=== PATIENT | male | born 1945 | race African-American/Black ===

== ENCOUNTER 2017-12-22 13:41 | Emergency (ER) | payer MEDICARE, OTHER ==
[~2017-12-22] VITALS: Ht 180.3 cm; Wt 90.0 kg
[2017-12-22 13:42] VITALS: BP 0/0
[2017-12-22] MEDS ORDERED: EPINEPHRINE 0.1MG/ML (1:10,000) 10ML SYR ONE (14:55)
[2017-12-22] MEDS ORDERED: SODIUM BICARBONATE 7.5% 0.9 MEQ/ML 50ML SYR IV ONE (14:55)
[2017-12-22] MEDS ORDERED: CALCIUM CHLORIDE 1GM/10ML SYR IV ONE (14:55)
== END 2017-12-22 13:48 | disposition expired ==
LOC: ER 13:43
DX: I46.9 Cardiac arrest, cause unspecified (principal)
CPT/HCPCS: 31500; 92950; 99285; J3490